=== PATIENT | male | born 1985 | race Caucasian/White ===

== ENCOUNTER 2017-10-27 01:12 | Emergency (ER) | payer OTHER ==
[~2017-10-27] VITALS: Ht 180.3 cm; Wt 68.0 kg
[2017-10-27 01:24] VITALS: Ht 180.3 cm; Wt 68.0 kg
[2017-10-27 02:40] VITALS: BP 142/90
== END 2017-10-27 02:40 | disposition home or self-care (01) ==
LOC: ED 01:12
DX: N39.0 Urinary tract infection, site not specified (principal); M54.9 Dorsalgia, unspecified; Z91.018 Allergy to other foods

== ENCOUNTER 2018-12-26 06:18 | Emergency (ER) | payer OTHER ==
[~2018-12-26] VITALS: Ht 180.3 cm; Wt 74.8 kg
[2018-12-26 06:22] VITALS: BP 135/86; Ht 180.3 cm; Wt 74.8 kg
== END 2018-12-26 07:22 | disposition home or self-care (01) ==
LOC: ED 06:18
DX: S82.291D Other fracture of shaft of right tibia, subsequent encounter for closed fracture with routine healing (principal); S82.491D Other fracture of shaft of right fibula, subsequent encounter for closed fracture with routine healing; F17.210 Nicotine dependence, cigarettes, uncomplicated; G82.20 Paraplegia, unspecified; V87.8XXD Person injured in other specified noncollision transport accidents involving motor vehicle (traffic), subsequent encounter; Z98.890 Other specified postprocedural states; Z91.018 Allergy to other foods
CPT/HCPCS: 99406; J1885